=== PATIENT | female | born 1950 | race Caucasian/White ===

== ENCOUNTER 2020-12-29 08:26 | Emergency (ER) | payer MEDICARE, OTHER ==
[2020-12-29 08:54] LABS: BASOPHIL 0.5 % (0-2); EOSINOPHIL 1.3 % (0-7); HCT 38.9 % (37.0-47.0); HGB 13.2 g/dl (12.5-16.0); LYMPHOCYTE 9.6 % (15-48); MCH 28.4 pg (25.0-31.0); MCHC 33.9 g/dL (32.0-36.0); MCV 83.8 fL (78.0-100.0); MONOCYTE 9.9 % (0-12); NEUTROPHIL 78.4 % (41-80); NRBC 0; PLT 187 K/uL (150-400); RBC 4.64 M/uL (4.20-5.40); RDW 13.7 % (11.5-14.0); WBC 9.7 K/uL (4.0-10.5)
[2020-12-29 08:55] LABS: INR 1.09 (0.9-1.2); PROTHROMBIN TIME 13.5 SECONDS (11.8-13.4)
[2020-12-29 08:56] LABS: PTT 30.9 SECONDS (24.4-34.7)
[2020-12-29 08:57] LABS: D-DIMER 1.64 ug/mLFEU (0.00-0.41)
[2020-12-29 09:04] LABS: ALBUMIN 3.3 g/dL (3.4-5.0); BILIRUBIN - TOTAL 0.4 mg/dL (0.2-1.0); BUN/CREAT RATIO (CALC) 18.4 RATIO; CREATININE 0.98 mg/dL (0.51-0.95); GLOBULIN (CALCULATION) 3.8 g/dL; TOTAL PROTEIN 7.1 g/dL (6.4-8.2)
[2020-12-29 09:39] LABS: CKMB <0.5 ng/mL (0.0-3.6)
== END 2020-12-29 10:35 | disposition home or self-care (01) ==
LOC: FER 08:26
PROVIDERS: Emergency Medicine
DX: R07.89 Other chest pain (principal); K44.9 Diaphragmatic hernia without obstruction or gangrene; E11.9 Type 2 diabetes mellitus without complications; Z85.3 Personal history of malignant neoplasm of breast; Z90.12 Acquired absence of left breast and nipple
CPT/HCPCS: 36415; 71046; 71275; 80053; 82553; 84484; 85025; 85379; 85610; 85730; 93005; Q9967